=== PATIENT | male | born 1985 ===

== ENCOUNTER 2018-12-13 11:08 | Observation (INO) | payer OTHER ==
[2018-12-13] MEDS ORDERED: Oxycodone/Acetaminophen 5/325 mg Tab PO STA (11:44)
[2018-12-13] MEDS ORDERED: Oxycodone/Acetaminophen 5/325 mg Tab ONE (12:26)
[2018-12-13] MEDS ORDERED: ceFAZolin 1 GM in Sodium Chloride 0.9% 100 ML IVPB STA (13:06)
[2018-12-13] MEDS ORDERED: Morphine 4 MG/ML VIAL IVP ONE (13:06)
[2018-12-13] MEDS ORDERED: Sodium Chloride 0.9% 1,000 ML IV STA (13:06)
--- NOTE | 2018-12-13 13:09 | ED PDOC ---
HPI: General Adult Time Seen by Provider: 12/13/18 11:43 Chief Complaint (Nursing): Trauma Chief Complaint (Provider): HAND/WRIST INJURY History Per: Patient (33 Y/O MALE HERE WITH LEFT HAND/ARM INJURY THAT OCCURRED TODAY CRUSH INJURY WHEN 13 PLANKs FELL ON WRIST/HAND AND CRUSHED AGAINST CONCRETE. NOTES MODERATE PAIN IN WRIST AND HAND. IS LEFT HAND DOMINANT. ABLE TO MOVE DIGITS.) Past Medical History Reviewed: Historical Data, Nursing Documentation, Vital Signs Vital Signs: Last Vital Signs Temp 98.3 F 12/13/18 11:12 Pulse 84 12/13/18 11:12 Resp 19 12/13/18 11:12 BP 177/70 H 12/13/18 11:12 Pulse Ox 100 12/13/18 11:12 - Family History Family History: States: No Known Family Hx - Home Medications Home Medications: Ambulatory Orders Medication Instructions Recorded Cephalexin [Keflex] 500 mg PO BID 7 Days #14 capsule 12/14/18 RX: Ibuprofen [Motrin Tab] 600 mg PO Q6 #20 tab 12/14/18 - Allergies Allergies/Adverse Reactions: Allergies Allergy/AdvReac Type Severity Reaction Status Date / Time No Known Allergies Allergy Verified 12/13/18 11:14 Review of Systems ROS Statement: Except As Marked, All Systems Reviewed And Found Negative Physical Exam - Reviewed Nursing Documentation Reviewed: Yes Vital Signs Reviewed: Yes - Physical Exam Appears: Positive for: Well, Non-toxic, No Acute Distress Head Exam: Positive for: ATRAUMATIC, NORMAL INSPECTION, NORMOCEPHALIC Skin: Positive for: Normal Color, Warm, DRY Eye Exam: Positive for: EOMI, Normal appearance, PERRL ENT: Positive for: Normal ENT Inspection Neck: Positive for: Normal, Painless ROM Cardiovascular/Chest: Positive for: Regular Rate, Rhythm Respiratory: Positive for: CNT, Normal Breath Sounds Gastrointestinal/Abdominal: Positive for: Normal Exam, Soft Back: Positive for: Normal Inspection Extremity: Positive for: Normal ROM, Other (TENDERNESS NOTED LEFT WRIST AND HAND. (+) LACERATION #1 PROXIMAL VOLAR REGION OF THIRD DIGIT 2.5 CM SIX 4-0 PROLENE SUTURES. LACERATION #2 DISTAL VOLAR SURFACE OF THIRD DIGIT 5.0 CM TEN 4-0 PROLENE INTERRUPTED SUTURES PLACED. SUBUNGUAL HEMATOMA NOTED FOURTH DIGIT.) Neurologic/Psych: Positive for: Alert, Oriented - Laboratory Results Result Diagrams: 12/14/18 04:25 12/14/18 04:25 - ECG O2 Sat by Pulse Oximetry: 100 - Progress ED Course And Treament: PERCOCET 5/325 MG X 1 DOSE XRY OF HAND/WRIST/FOREARM WNL UPON RE-EXAMINATION, PERSISTENT PAIN ALSO NOTED MODERATE SWELLING LEFTWRIST WITH PATIENT DESCRIBING NUMBNESS IN HANDS/DIGITS. CAPILLARY REFILL NOTED PERSISTENT. MORPHINE 4 MG IV NS 1 LITER ANCEF 1 GM IV CALL PLACED TO DR. LYNN. XRY OF FORERM: WNL XRY WRIST: IMPRESSION: Suspected minimally displaced triquetral fracture. These findings were discussed by telephone with Oscar Landa at 1:18 p.m. on 12/13/2018. XRY HAND: IMPRESSION: Suspected minimally displaced triquetral fracture. D/W DR. PIZARRO concern for compartment syndrome. WILL COME TO ED FOR EVALUATION. SEEN BY DR. PIZARRO IN ED. WILL ADMIT FOR OBSERVATION. VOLAR SPLINT APPLIED IN ED . THIRD DIGIT SUBUNGUAL HEMATOMA TREPINATED IN ED. Disposition - Clinical Impression Clinical Impression: Crush injury forearm, Triquetral fracture, Crush injury of hand, Laceration of finger, Subungual hematoma of finger - Patient ED Disposition Is Patient to be Admitted: Yes - Disposition Disposition Time: 14:37 Condition: FAIR - Pt Status Changed To: Hospital Disposition Of: Observation Procedure: Wound Repair - Time Performed Time Performed: 15:39 - Time Out Time Out: Site verified - Consent Obtained Consent obtained: Verbal - Performed by Performed by: Mid-level Provider - Indications Indication(s):: Laceration - Location Location:: Left, Hand Finger:: Left, Middle Shape:: Linear, Curvilinear Dimensions Length cm: LAC#1 2.5 CM SIX 4-0 PROLENE INTERRUPTED PROX SUTURE Dimensions width cm: LAC #2 5.0 CM DISTAL THIRD DIGIT TEN 4-0 PROLENE SUTURES INTERRUPTED Depth:: Subcutaneous fascia - Anesthetic Technique Anesthetic Technique: Regional block Local/Regional Anesthetic:: Lidocaine 1% - Irrigated Irrigated with ml of normal saline: 150ML - Complexity Complexity:: Simple (one layer) - Muscle repiar layer closed with Muscle repair layer closed with:: Tetanus up to date - Patient tolerated procedure Patient Tolerated Procedure:: Well
--- NOTE | 2018-12-13 13:15 | RAD ---
Date of service: 12/13/2018 PROCEDURE: Radiographs of the Left Forearm HISTORY: INJUYR COMPARISON: None available. TECHNIQUE: Frontal and lateral views obtained. FINDINGS: BONES: No fracture or destructive lesion. JOINT SPACES: Unremarkable. OTHER FINDINGS: None. IMPRESSION: Unremarkable radiographs of the left forearm.
[2018-12-13] MEDS ORDERED: Morphine 4 MG/ML VIAL ONE (13:19)
--- NOTE | 2018-12-13 13:22 | RAD ---
Date of service: 12/13/2018 PROCEDURE: Left Wrist Radiographs. HISTORY: INJURY COMPARISON: None. FINDINGS: BONES: Suspect minimally displaced triquetral fracture. This is evident only in the lateral projection. No other fracture identified. JOINTS: Normal. No dislocation. SOFT TISSUES: There is dorsal soft tissue swelling noted. OTHER FINDINGS: None. IMPRESSION: Suspected minimally displaced triquetral fracture. These findings were discussed by telephone with Oscar Landa at 1:18 p.m. on 12/13/2018.
--- NOTE | 2018-12-13 13:31 | RAD ---
PROCEDURE: Left Hand Radiographs. HISTORY: HAND INJURY COMPARISON: None. FINDINGS: BONES: Suspected triquetrum fracture, minimally displaced. No other fracture identified. JOINTS: Normal. No osteoarthritic changes. SOFT TISSUES: Minimal dorsal soft tissue swelling OTHER FINDINGS: None. IMPRESSION: Suspected minimally displaced triquetral fracture.
[2018-12-13 14:00] LABS: BASO % 0.2 % (0.0-2.0); EOS # 0.1 K/uL (0.0-0.7); EOS % 0.8 % (0.0-4.0); LYMPH % 10.6 % (20.0-40.0); MEAN CELL VOLUME 84.8 fl (80.0-94.0); MEAN CORPUSCULAR HEMOGLOBIN 28.7 pg (27.0-31.0); MEAN CORPUSCULAR HGB CONC 33.9 g/dL (33.0-37.0); MEAN PLATELET VOLUME 10.2 fl (7.2-11.7); MONO # 0.3 K/uL (0.0-0.8); MONO % 3.6 % (0.0-10.0); NEUT % 84.8 % (50.0-75.0); NRBC % 0.2 % (0.0-0.0); RBC 4.86 Mil/uL (4.40-5.90); RED CELL DISTRIBUTION WIDTH 13.8 % (11.5-14.5); WHITE BLOOD COUNT 9.4 K/uL (4.8-10.8)
[2018-12-13 14:07] LABS: ALB/GLOB RATIO 1.3 (1.0-2.1); ALBUMIN 4.5 g/dL (3.5-5.0); ALT/SGPT 27 U/L (21-72); AST/SGOT 29 U/L (17-59); BLOOD UREA NITROGEN 12 mg/dl (9-20); CALCIUM 9.5 mg/dL (8.4-10.2); GFR NON-AFRICAN AMERICAN > 60
[2018-12-13] MEDS ORDERED: Lidocaine 1% Inj (20ml) INFIL ONE (14:10)
[2018-12-13] MEDS ORDERED: Lidocaine 1% Inj (20ml) ONE (14:16)
--- NOTE | 2018-12-13 16:20 | CP.PCM.HP ---
<Meera Frias - Last Filed: 12/13/18 17:20> History of Present Illness - History of Present Illness History of Present Illness: CC: "I hurt my left arm and hand" 33 year old male patient, with no significant PMHx, seen and evaluated for left arm injury. Patient states that while he was at work, he was carrying plates down the steps when wooden sheets next to him fell causing his hand to be crushed between the wooden sheets and the concrete wall. He states that his has pain to the wrist and third finger. He is currently experiencing numbness over his wrist, however states that he can move his fingers. He denies nausea/vomitting/fever/chest pain/SOB. PMD: Denies PMHx: Denies PSHx: Denies SHx: Denies Allergies: NKDA Medication: Denies Nish Interpretor: [id number] ED Course: - Percocet 5/325 (x1 dose), Ancef 1gm IV (x1 dose), Morphine (x1 dose) - X-ray of L hand/wrist/forearm taken; minimally displaced triquetral fracture - Laceration to left 3rd digit and hand sutured - Ortho Consult; Dr. Story - Volar splint applied to L arm Present on Admission - Present on Admission Any Indicators Present on Admission: No History of DVT/PE: No History of Uncontrolled Diabetes: No Decubitus Ulcer Present: No Review of Systems - Constitutional Constitutional: As Per HPI. absent: Chills, Fever - EENT Eyes: As Per HPI. absent: Change in Vision - Cardiovascular Cardiovascular: As Per HPI - Respiratory Respiratory: As Per HPI. absent: Cough, Wheezing - Gastrointestinal Gastrointestinal: As Per HPI. absent: Abdominal Pain - Genitourinary Genitourinary: As Per HPI - Musculoskeletal Musculoskeletal: Numbness Additional comments: Numbness appreciated to L wrist - Integumentary Integumentary: As Per HPI Additional comments: Laceration appreciated to L hand and finger - Neurological Neurological: As Per HPI - Psychiatric Psychiatric: As Per HPI - Endocrine Endocrine: As Per HPI - Hematologic/Lymphatic Hematologic: As Per HPI Past Patient History - Past Social History Smoking Status: Never Smoked Alcohol: Social - PSYCHIATRIC Hx Substance Use: No - ANESTHESIA Hx Anesthesia: No Meds Allergies/Adverse Reactions: Allergies Allergy/AdvReac Type Severity Reaction Status Date / Time No Known Allergies Allergy Verified 12/13/18 11:14 Physical Exam - Constitutional Appears: Non-toxic, No Acute Distress - Head Exam Head Exam: ATRAUMATIC, NORMOCEPHALIC - Eye Exam Eye Exam: Normal appearance Pupil Exam: NORMAL ACCOMODATION - Respiratory Exam Respiratory Exam: Clear to Auscultation Bilateral, NORMAL BREATHING PATTERN - Cardiovascular Exam Cardiovascular Exam: REGULAR RHYTHM - GI/Abdominal Exam GI & Abdominal Exam: Normal Bowel Sounds, Soft - Extremities Exam Additional comments: Left volar splint c/d/i Patient able to wiggle fingers Cap refill to digits < 3 seconds - Neurological Exam Neurological exam: Alert, Oriented x3 - Psychiatric Exam Psychiatric exam: Normal Affect, Normal Mood - Skin Skin Exam: Warm Results - Vital Signs Recent Vital Signs: Last Vital Signs Temp 98.3 F 12/13/18 11:12 Pulse 84 12/13/18 11:12 Resp 19 12/13/18 11:12 BP 177/70 H 12/13/18 11:12 Pulse Ox 100 12/13/18 15:47 - Labs Result Diagrams: 12/13/18 13:53 12/13/18 13:53 Labs: Laboratory Results - last 24 hr 12/13/18 12/13/18 12/13/18 13:53 13:53 13:53 WBC 9.4 RBC 4.86 Hgb 14.0 Hct 41.2 MCV 84.8 MCH 28.7 MCHC 33.9 RDW 13.8 Plt Count 149 MPV 10.2 Neut % (Auto) 84.8 H Lymph % (Auto) 10.6 L Sebastian % (Auto) 3.6 Eos % (Auto) 0.8 Baso % (Auto) 0.2 Neut # (Auto) 8.0 H Lymph # (Auto) 1.0 Sebastian # (Auto) 0.3 Eos # (Auto) 0.1 Baso # (Auto) 0.0 Sodium 137 Potassium 3.8 Chloride 100 Carbon Dioxide 26 Anion Gap 15 BUN 12 Creatinine 0.6 L Est GFR ( Amer) > 60 Est GFR (Non-Af Amer) > 60 Random Glucose 111 H Calcium 9.5 Total Bilirubin 0.5 AST 29 ALT 27 Alkaline Phosphatase 94 Total Protein 8.1 Albumin 4.5 Globulin 3.6 Albumin/Globulin Ratio 1.3 Blood Type O POSITIVE Antibody Screen Negative BBK History Checked No verified bt Assessment & Plan - Assessment and Plan (Free Text) Assessment: 33 year old male patient, with no significant PMHx, admitted for L forearm and hand crush injury Plan: 1. Crush injury to wrist and finger with subsequent triquetral fracture - Admit to med/surg for observation - Pain meds, Tylenol, Percocet, Morphine - Orthopedic Consult: Dr. Story - Neurovascular checks Q1 - NPO 2. DVT prophylaxis - SCDs - Date & Time Date: 12/13/18 Time: 16:26 <Porsha Ovalles - Last Filed: 12/13/18 18:44> Results - Vital Signs Recent Vital Signs: Last Vital Signs Temp 98.8 F 12/13/18 17:58 Pulse 66 12/13/18 17:58 Resp 18 12/13/18 17:58 BP 136/72 12/13/18 17:58 Pulse Ox 97 12/13/18 17:58 - Labs Result Diagrams: 12/13/18 13:53 12/13/18 13:53 Labs: Laboratory Results - last 24 hr 12/13/18 12/13/18 12/13/18 13:53 13:53 13:53 WBC 9.4 RBC 4.86 Hgb 14.0 Hct 41.2 MCV 84.8 MCH 28.7 MCHC 33.9 RDW 13.8 Plt Count 149 MPV 10.2 Neut % (Auto) 84.8 H Lymph % (Auto) 10.6 L Sebastian % (Auto) 3.6 Eos % (Auto) 0.8 Baso % (Auto) 0.2 Neut # (Auto) 8.0 H Lymph # (Auto) 1.0 Sebastian # (Auto) 0.3 Eos # (Auto) 0.1 Baso # (Auto) 0.0 Sodium 137 Potassium 3.8 Chloride 100 Carbon Dioxide 26 Anion Gap 15 BUN 12 Creatinine 0.6 L Est GFR ( Amer) > 60 Est GFR (Non-Af Amer) > 60 Random Glucose 111 H Calcium 9.5 Total Bilirubin 0.5 AST 29 ALT 27 Alkaline Phosphatase 94 Total Protein 8.1 Albumin 4.5 Globulin 3.6 Albumin/Globulin Ratio 1.3 Blood Type O POSITIVE Blood Type Confirm Antibody Screen Negative BBK History Checked No verified bt 12/13/18 15:20 WBC RBC Hgb Hct MCV MCH MCHC RDW Plt Count MPV Neut % (Auto) Lymph % (Auto) Sebastian % (Auto) Eos % (Auto) Baso % (Auto) Neut # (Auto) Lymph # (Auto) Sebastian # (Auto) Eos # (Auto) Baso # (Auto) Sodium Potassium Chloride Carbon Dioxide Anion Gap BUN Creatinine Est GFR ( Amer) Est GFR (Non-Af Amer) Random Glucose Calcium Total Bilirubin AST ALT Alkaline Phosphatase Total Protein Albumin Globulin Albumin/Globulin Ratio Blood Type Blood Type Confirm O POSITIVE Antibody Screen BBK History Checked Attending/Attestation - Attestation I have personally seen and examined this patient.: Yes I have fully participated in the care of the patient.: Yes I have reviewed all pertinent clinical information: Yes Notes (Text): 12/13/18 18:43 33 year old male no past medical history sustained a crush injury at work to hand between 13 planks and concrete. Patient was seen by Dr. Jez GALEAS who recommends OBS for possible compartment syndrome and q1 neurovascular checks in ICU. HD stable, NAD. Currently patient is NV intact, good pulses.
--- NOTE | 2018-12-13 17:54 | CP.PCM.CON ---
History of Present Illness - History of Present Illness History of Present Illness: Orthopedic consult: Patient is a RHD male c/o L hand/wrist pain. 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 He sustained a large laceration to his left 3rd digit as well. Currently his pain is dull, throbbing and located to his volar wrist and third finger. Pain is worse with movement and alleviated with rest. The pain is associated with severe swelling of the wrist volarly. He denies any numbness/tingling to L hand. He also denies CP/SOB/N/V/D/fever/dysuria/melena. Dr. Story was consulted to evaluate for forearm compartment syndrome. Review of Systems - Review of Systems All systems: reviewed and no additional remarkable complaints except Review of Systems: as per HPI Past Patient History - Past Medical History & Family History Past Family History: Reviewed and not pertinent - Past Social History Smoking Status: Never Smoked Alcohol: Social Drugs: Denies - CARDIAC Hx Cardiac Disorders: No - PSYCHIATRIC Hx Substance Use: No - ANESTHESIA Hx Anesthesia: No Meds Allergies/Adverse Reactions: Allergies Allergy/AdvReac Type Severity Reaction Status Date / Time No Known Allergies Allergy Verified 12/13/18 11:14 - Medications Medications: Current Medications Acetaminophen (Tylenol 325mg Tab) 325 mg PO Q4 PRN PRN Reason: Pain, Mild (1-3) Morphine Sulfate (Morphine) 2 mg IVP Q4 PRN PRN Reason: Pain, severe (8-10) Oxycodone/Acetaminophen (Percocet 5/325 Mg Tab) 1 tab PO Q4 PRN PRN Reason: Pain, moderate (4-7) Stop: 12/16/18 16:40 Physical Exam - Constitutional Appears: Well, No Acute Distress - Head Exam Head Exam: ATRAUMATIC, NORMOCEPHALIC - Eye Exam Eye Exam: EOMI, Normal appearance - ENT Exam ENT Exam: Mucous Membranes Moist - Respiratory Exam Respiratory Exam: NORMAL BREATHING PATTERN - Extremities Exam Additional comments: RUE: large laceration to 3rd digit from distal phalynx to PIP volarly severe swelling to 3rd digit and volar wrist compartments are softly compressible Radial pulse inact sensation intact MN/UN/RN motor intact MN/UN/Rn - Neurological Exam Neurological exam: Alert, Oriented x3 - Psychiatric Exam Psychiatric exam: Normal Affect, Normal Mood - Skin Skin Exam: Normal Color, Warm Results - Vital Signs Recent Vital Signs: Last Vital Signs Temp 98.5 F 12/13/18 17:42 Pulse 64 12/13/18 17:42 Resp 18 12/13/18 17:42 BP 148/69 12/13/18 17:42 Pulse Ox 98 12/13/18 17:42 - Labs Result Diagrams: 12/13/18 13:53 12/13/18 13:53 Labs: Laboratory Results - last 24 hr 12/13/18 12/13/18 12/13/18 13:53 13:53 13:53 WBC 9.4 RBC 4.86 Hgb 14.0 Hct 41.2 MCV 84.8 MCH 28.7 MCHC 33.9 RDW 13.8 Plt Count 149 MPV 10.2 Neut % (Auto) 84.8 H Lymph % (Auto) 10.6 L Floyd % (Auto) 3.6 Eos % (Auto) 0.8 Baso % (Auto) 0.2 Neut # (Auto) 8.0 H Lymph # (Auto) 1.0 Floyd # (Auto) 0.3 Eos # (Auto) 0.1 Baso # (Auto) 0.0 Sodium 137 Potassium 3.8 Chloride 100 Carbon Dioxide 26 Anion Gap 15 BUN 12 Creatinine 0.6 L Est GFR ( Amer) > 60 Est GFR (Non-Af Amer) > 60 Random Glucose 111 H Calcium 9.5 Total Bilirubin 0.5 AST 29 ALT 27 Alkaline Phosphatase 94 Total Protein 8.1 Albumin 4.5 Globulin 3.6 Albumin/Globulin Ratio 1.3 Blood Type O POSITIVE Blood Type Confirm Antibody Screen Negative BBK History Checked No verified bt 12/13/18 15:20 WBC RBC Hgb Hct MCV MCH MCHC RDW Plt Count MPV Neut % (Auto) Lymph % (Auto) Floyd % (Auto) Eos % (Auto) Baso % (Auto) Neut # (Auto) Lymph # (Auto) Floyd # (Auto) Eos # (Auto) Baso # (Auto) Sodium Potassium Chloride Carbon Dioxide Anion Gap BUN Creatinine Est GFR ( Amer) Est GFR (Non-Af Amer) Random Glucose Calcium Total Bilirubin AST ALT Alkaline Phosphatase Total Protein Albumin Globulin Albumin/Globulin Ratio Blood Type Blood Type Confirm O POSITIVE Antibody Screen BBK History Checked - Impressions Impression: Accession No. : [id number] Patient Name / ID : RONNIE MAURO / [id number] Exam Date : 12/13/2018 11:29:38 ( Approved ) Study Comment : Sex / Age : M / 33Y Creator : Bib Zacarias MD Dictator : Bib Zacarias MD Gang Pusher : [employer] Teacher : Bib Zacarias MD Approver2 : Report Date : 12/13/2018 13:28:03 My Comment : PROCEDURE: Left Hand Radiographs. HISTORY: HAND INJURY COMPARISON: None. FINDINGS: BONES: Suspected triquetrum fracture, minimally displaced. No other fracture ident ified. JOINTS: Normal. No osteoarthritic changes. SOFT TISSUES: Minimal dorsal soft tissue swelling OTHER FINDINGS: None. IMPRESSION: Suspected minimally displaced triquetral fracture. Accession No. : [id number] Patient Name / ID : RONNIE MAURO / [id number] Exam Date : 12/13/2018 11:35:37 ( Approved ) Study Comment : Sex / Age : M / 33Y Creator : Bib Zacarias MD Dictator : Bib Zacarias MD Gang Pusher : [employer] Teacher : Bib Zacarias MD Approver2 : Report Date : 12/13/2018 13:18:27 My Comment : Date of service: 12/13/2018 PROCEDURE: Left Wrist Radiographs. HISTORY: INJURY COMPARISON: None. FINDINGS: BONES: Suspect minimally displaced triquetral fracture. This is evident only in the lateral projection. No other fracture identified. JOINTS: Normal. No dislocation. SOFT TISSUES: There is dorsal soft tissue swelling noted. OTHER FINDINGS: None. IMPRESSION: Suspected minimally displaced triquetral fracture. These findings were discussed by telephone with Oscar Landa at 1:18 p.m. on 12/13/2018. Accession No. : [id number] Patient Name / ID : RONNIE MAURO / [id number] Exam Date : 12/13/2018 11:37:34 ( Approved ) Study Comment : Sex / Age : M / 33Y Creator : Bib Zacarias MD Dictator : Bib Zacarias MD Gang Pusher : [employer] Teacher : Bib Zacarias MD Approver2 : Report Date : 12/13/2018 13:11:54 My Comment : Date of service: 12/13/2018 PROCEDURE: Radiographs of the Left Forearm HISTORY: INJUYR COMPARISON: None available. TECHNIQUE: Frontal and lateral views obtained. FINDINGS: BONES: No fracture or destructive lesion. JOINT SPACES: Unremarkable. OTHER FINDINGS: None. IMPRESSION: Unremarkable radiographs of the left forearm. Assessment & Plan (1) Crush injury forearm Assessment and Plan: -Neurovascular checks every hour -Avoid circumferential wraps to wrist -Strict elevation and ice to wrist/hand Status: Acute (2) Laceration of finger Assessment and Plan: -Repaired by ED -local wound care Status: Acute (3) Triquetral fracture Assessment and Plan: immobilization once cleared of compartment syndrome next 24 hrs Status: Acute - Date & Time Date: 12/13/18 Time: 14:00
[2018-12-13] MEDS: Morphine 4 MG/ML VIAL IVP PRN (19:04)
[2018-12-13] MEDS ORDERED: Influenza Vaccine 60 mcg/0.5 mL SYR (4YR UP) IM ONE (21:00)
[2018-12-13] MEDS: Potassium Ch 20mEq in D5-1/2NS 1,000 ML IV SCH (21:29)
[2018-12-14] MEDS: Morphine 4 MG/ML VIAL IVP PRN (02:29)
[2018-12-14 05:33] LABS: MEAN CELL VOLUME 85.7 fl (80.0-94.0); MEAN CORPUSCULAR HEMOGLOBIN 28.7 pg (27.0-31.0); MEAN CORPUSCULAR HGB CONC 33.5 g/dL (33.0-37.0); RBC 4.52 Mil/uL (4.40-5.90); RED CELL DISTRIBUTION WIDTH 13.6 % (11.5-14.5); WHITE BLOOD COUNT 6.6 K/uL (4.8-10.8)
[2018-12-14 05:55] LABS: BLOOD UREA NITROGEN 9 mg/dl (9-20); GFR NON-AFRICAN AMERICAN > 60
[2018-12-14] MEDS: Potassium Ch 20mEq in D5-1/2NS 1,000 ML IV SCH (06:10)
[2018-12-14] MEDS: Pneumococcal 23-Valent Vaccine IM ONE ×2 (06:12→06:40)
[2018-12-14 08:16] VITALS: TEMP 98
[2018-12-14] MEDS: Oxycodone/Acetaminophen 5/325 mg Tab PO PRN ×2 (08:22→14:35)
[2018-12-14 10:53] VITALS: PULSE 69
--- NOTE | 2018-12-14 11:26 | CP.PCM.PN ---
Subjective - Date & Time of Evaluation Date of Evaluation: 12/14/18 Time of Evaluation: 09:00 - Subjective Subjective: Patient seen and examined at bedside. Pain is improved since yesterday. No complaints of L hand worsening pain/numbness/tingling/cold hand. No acute events overnight. Objective - Vital Signs/Intake and Output Vital Signs (last 24 hours): Temp Pulse Resp BP Pulse Ox 98.0 F 69 15 108/60 96 12/14/18 08:00 12/14/18 10:00 12/14/18 10:00 12/14/18 10:00 12/14/18 10:00 Intake and Output: 12/14/18 12/14/18 06:59 18:59 Intake Total 1220 0 Balance 1220 0 - Medications Medications: Current Medications Acetaminophen (Tylenol 325mg Tab) 325 mg PO Q4 PRN PRN Reason: Pain, Mild (1-3) Cephalexin Monohydrate (Keflex) 500 mg PO Q12 MATHEUS; Protocol Last Admin: 12/14/18 09:21 Dose: 500 mg Potassium Chloride/Dextrose/Sod Cl (Potassium Chl 20 Meq In D5-1/2ns) 1,000 mls @ 125 mls/hr IV .Q8H MATHEUS Stop: 12/14/18 18:54 Last Admin: 12/14/18 06:10 Dose: 125 mls/hr Morphine Sulfate (Morphine) 2 mg IVP Q4 PRN PRN Reason: Pain, severe (8-10) Last Admin: 12/14/18 02:29 Dose: 2 mg Oxycodone/Acetaminophen (Percocet 5/325 Mg Tab) 1 tab PO Q4 PRN PRN Reason: Pain, moderate (4-7) Stop: 12/16/18 16:40 Last Admin: 12/14/18 08:22 Dose: 1 tab - Labs Labs: 12/14/18 04:25 12/14/18 04:25 - Extremities Exam Additional comments: LUE: volar splint in place, loosely wrapped dressings to L 3rd digit intact with bloody drainage, not actively bleeding sensation intact to all fingers, MN/UN/RN 2 sec cap refill all fingers Assessment and Plan (1) Crush injury forearm Assessment & Plan: -Compartment syndrome less likely due to improving symptoms -maintain volar splint looslely wrapped -Strict ice and elevation fo LUE -local wound care to 3rd digit -CT scan to further evaluate for triquetral fx -above d/w Dr. Story in agreement Status: Acute (2) Laceration of finger Status: Acute (3) Triquetral fracture Status: Acute
--- NOTE | 2018-12-14 11:26 | CP.CCUPN ---
CCU Subjective - Physician Review Subjective (Free Text): 12/14/18 11:26 The patient was Seen/interviewed and examined by me at the bedside, Medical records reviewed and Management issues were discussed and formulated with the house staff. Events reviewed Mr Cavazos is a 33 Years old Male with no past medical history sustained a crush injury at work to hand between 13 planks and concrete. Volar splint applied in ED Patient was seen by Ortho Dr. Story, and he was admitted to ICU for observations for possible compartment syndrome and q1 neurovascular checks. Local wound care, ice and elevation fo LUE Doing well today, Comfortable, NAD Afebrile Alert and oriented Pain controlled Denies any chest pain, SOB or Palpitations Scheduled for CT scan to further evaluate for triquetral fx CCU Objective - Vital Signs / Intake & Output Vital Signs (Last 4 hours): Vital Signs Temp Pulse Resp BP Pulse Ox 12/14/18 10:00 69 15 108/60 96 12/14/18 08:00 98.0 F 66 14 110/60 95 Intake and Output (Last 8hrs): Intake & Output 12/13/18 12/14/18 12/14/18 22:59 06:59 14:59 Intake Total 220 1000 0 Balance 220 1000 0 Weight 176 lb Intake: IV 220 1000 0 Other: # Voids Urine, Voided 1 1 2 - Physical Exam Head: Positive for: Atraumatic, Normocephalic. Negative for: Tenderness, Contusion Pupils: Positive for: PERRL. Negative for: Sluggish, Non-Reactive Extroacular Muscles: Positive for: EOMI Conjunctiva: Positive for: Normal. Negative for: Injected, Icteric Ears: Positive for: Normal Mouth: Positive for: Moist Mucous Membranes Pharnyx: Positive for: Normal. Negative for: ERYTHEMA Nose (Internal): Positive for: Normal Inspection Neck: Positive for: Normal Range of Motion, Trachea Midline. Negative for: Meningeal Signs, MIDLINE TENDERNESS, Paraspinal Tenderness, JVD, Lymphadenopathy, Bruit, Other Respiratory/Chest: Positive for: Clear to Auscultation, Good Air Exchange. Negative for: Respiratory Distress, Accessory Muscle Use, Rales, Retracting, Rhonchi Cardiovascular: Positive for: Regular Rate and Rhythm, Normal S1, S2, Peripheal Pulses Present. Negative for: Murmurs Abdomen: Positive for: Normal Bowel Sounds. Negative for: Tenderness, Distention Upper Extremity: Negative for: Normal Inspection (Left Hand Lacerations, Shape:: Linear, Curvilinear, Dimensions Length cm: LAC#1 2.5 CM SIX 4-0, LAC #2 5.0 CM DISTAL THIRD DIGIT TEN 4-0 ) Lower Extremity: Positive for: Normal Inspection. Negative for: Edema, CALF TENDERNESS, NORMAL PULSES Neurological: Positive for: GCS=15, CN II-XII Intact, Speech Normal, Motor Func Grossly Intact, Normal Sensory Function Skin: Positive for: Warm, Dry Psychiatric: Positive for: Alert, Oriented x 3, Normal Insight, Normal Concentration - Medications Active Medications: Active Medications Generic Name Dose Route Start Last Admin Trade Name Freq PRN Reason Stop Dose Admin Acetaminophen 325 mg 12/13/18 16:39 Tylenol 325mg Tab PO Q4 PRN Pain, Mild (1-3) Cephalexin Monohydrate 500 mg 12/14/18 09:00 12/14/18 09:21 Keflex PO 500 mg Q12 MATHEUS Administration Protocol Potassium Chloride/Dextrose/Sod Cl 1,000 mls @ 125 mls/hr 12/13/18 19:00 12/14/18 06:10 Potassium Chl 20 Meq In D5-1/2ns IV 12/14/18 18:54 125 mls/hr .Q8H MATHEUS Administration Morphine Sulfate 2 mg 12/13/18 16:39 12/14/18 02:29 Morphine IVP 2 mg Q4 PRN Administration Pain, severe (8-10) Oxycodone/Acetaminophen 1 tab 12/13/18 16:39 12/14/18 08:22 Percocet 5/325 Mg Tab PO 12/16/18 16:40 1 tab Q4 PRN Administration Pain, moderate (4-7) - Patient Studies Lab Studies: Lab Studies 12/14/18 12/14/18 12/13/18 Range/Units 04:25 04:25 15:20 WBC 6.6 (4.8-10.8) K/uL RBC 4.52 (4.40-5.90) Mil/uL Hgb 13.0 (12.0-18.0) g/dL Hct 38.7 (35.0-51.0) % MCV 85.7 (80.0-94.0) fl MCH 28.7 (27.0-31.0) pg MCHC 33.5 (33.0-37.0) g/dL RDW 13.6 (11.5-14.5) % Plt Count 133 (130-400) K/uL MPV (7.2-11.7) fl Neut % (Auto) (50.0-75.0) % Lymph % (Auto) (20.0-40.0) % Mcdowell % (Auto) (0.0-10.0) % Eos % (Auto) (0.0-4.0) % Baso % (Auto) (0.0-2.0) % Neut # (Auto) (1.8-7.0) K/uL Lymph # (Auto) (1.0-4.3) K/uL [place]cdowell # (Auto) (0.0-0.8) K/uL Eos # (Auto) (0.0-0.7) K/uL Baso # (Auto) (0.0-0.2) K/uL Sodium 140 (132-148) mmol/l Potassium 3.8 (3.6-5.0) MMOL/L Chloride 101 (98-107) mmol/L Carbon Dioxide 29 (22-30) mmol/L Anion Gap 14 (10-20) BUN 9 (9-20) mg/dl Creatinine 0.8 (0.8-1.5) mg/dl Est GFR ( Amer) > 60 Est GFR (Non-Af Amer) > 60 Random Glucose 105 (75-110) mg/dL Calcium 9.0 (8.4-10.2) mg/dL Total Bilirubin (0.2-1.3) mg/dl AST (17-59) U/L ALT (21-72) U/L Alkaline Phosphatase (38-126) U/L Total Protein (6.3-8.2) G/DL Albumin (3.5-5.0) g/dL Globulin (2.2-3.9) gm/dL Albumin/Globulin Ratio (1.0-2.1) Blood Type Blood Type Confirm O POSITIVE Antibody Screen BBK History Checked 12/13/18 12/13/18 12/13/18 Range/Units 13:53 13:53 13:53 WBC 9.4 (4.8-10.8) K/uL RBC 4.86 (4.40-5.90) Mil/uL Hgb 14.0 (12.0-18.0) g/dL Hct 41.2 (35.0-51.0) % MCV 84.8 (80.0-94.0) fl MCH 28.7 (27.0-31.0) pg MCHC 33.9 (33.0-37.0) g/dL RDW 13.8 (11.5-14.5) % Plt Count 149 (130-400) K/uL MPV 10.2 (7.2-11.7) fl Neut % (Auto) 84.8 H (50.0-75.0) % Lymph % (Auto) 10.6 L (20.0-40.0) % Mcdowell % (Auto) 3.6 (0.0-10.0) % Eos % (Auto) 0.8 (0.0-4.0) % Baso % (Auto) 0.2 (0.0-2.0) % Neut # (Auto) 8.0 H (1.8-7.0) K/uL Lymph # (Auto) 1.0 (1.0-4.3) K/uL Mcdowell # (Auto) 0.3 (0.0-0.8) K/uL Eos # (Auto) 0.1 (0.0-0.7) K/uL Baso # (Auto) 0.0 (0.0-0.2) K/uL Sodium 137 (132-148) mmol/l Potassium 3.8 (3.6-5.0) MMOL/L Chloride 100 (98-107) mmol/L Carbon Dioxide 26 (22-30) mmol/L Anion Gap 15 (10-20) BUN 12 (9-20) mg/dl Creatinine 0.6 L (0.8-1.5) mg/dl Est GFR ( Amer) > 60 Est GFR (Non-Af Amer) > 60 Random Glucose 111 H (75-110) mg/dL Calcium 9.5 (8.4-10.2) mg/dL Total Bilirubin 0.5 (0.2-1.3) mg/dl AST 29 (17-59) U/L ALT 27 (21-72) U/L Alkaline Phosphatase 94 (38-126) U/L Total Protein 8.1 (6.3-8.2) G/DL Albumin 4.5 (3.5-5.0) g/dL Globulin 3.6 (2.2-3.9) gm/dL Albumin/Globulin Ratio 1.3 (1.0-2.1) Blood Type O POSITIVE Blood Type Confirm Antibody Screen Negative BBK History Checked No verified bt Laboratory Results - last 24 hr 12/13/18 12/13/18 12/13/18 13:53 13:53 13:53 WBC 9.4 RBC 4.86 Hgb 14.0 Hct 41.2 MCV 84.8 MCH 28.7 MCHC 33.9 RDW 13.8 Plt Count 149 MPV 10.2 Neut % (Auto) 84.8 H Lymph % (Auto) 10.6 L Mcdowell % (Auto) 3.6 Eos % (Auto) 0.8 Baso % (Auto) 0.2 Neut # (Auto) 8.0 H Lymph # (Auto) 1.0 Mcdowell # (Auto) 0.3 Eos # (Auto) 0.1 Baso # (Auto) 0.0 Sodium 137 Potassium 3.8 Chloride 100 Carbon Dioxide 26 Anion Gap 15 BUN 12 Creatinine 0.6 L Est GFR ( Amer) > 60 Est GFR (Non-Af Amer) > 60 Random Glucose 111 H Calcium 9.5 Total Bilirubin 0.5 AST 29 ALT 27 Alkaline Phosphatase 94 Total Protein 8.1 Albumin 4.5 Globulin 3.6 Albumin/Globulin Ratio 1.3 Blood Type O POSITIVE Blood Type Confirm Antibody Screen Negative BBK History Checked No verified bt 12/13/18 12/14/18 12/14/18 15:20 04:25 04:25 WBC 6.6 RBC 4.52 Hgb 13.0 Hct 38.7 MCV 85.7 MCH 28.7 MCHC 33.5 RDW 13.6 Plt Count 133 MPV Neut % (Auto) Lymph % (Auto) Mcdowell % (Auto) Eos % (Auto) Baso % (Auto) Neut # (Auto) Lymph # (Auto) Mcdowell # (Auto) Eos # (Auto) Baso # (Auto) Sodium 140 Potassium 3.8 Chloride 101 Carbon Dioxide 29 Anion Gap 14 BUN 9 Creatinine 0.8 Est GFR ( Amer) > 60 Est GFR (Non-Af Amer) > 60 Random Glucose 105 Calcium 9.0 Total Bilirubin AST ALT Alkaline Phosphatase Total Protein Albumin Globulin Albumin/Globulin Ratio Blood Type Blood Type Confirm O POSITIVE Antibody Screen BBK History Checked Radiology Impressions: Radiology Impressions Hand X-Ray 12/13/18 11:39 IMPRESSION: Suspected minimally displaced triquetral fracture. Forearm X-Ray 12/13/18 11:43 IMPRESSION: Unremarkable radiographs of the left forearm. Wrist X-Ray 12/13/18 11:43 IMPRESSION: Suspected minimally displaced triquetral fracture. These findings were discussed by telephone with Oscar Landa at 1:18 p.m. on 12/13/2018. Review of Systems - Constitutional Constitutional: absent: Fever, Chills, Sweats, Weakness, Malaise - Cardiovascular Cardiovascular: absent: As Per HPI, Acrocyanosis, Chest Pain, Chest Pain at Rest, Chest Pain with Activity, Claudication, Diaphoresis, Dyspnea, Dyspnea on Exertion, Edema, Irregular Heart Rhythm, Pain Radiating to Arm/Neck/Jaw, Leg Edema, Leg Ulcers, Lightheadedness, Orthopnea, Palpitations, Paroxysmal Nocturnal Dyspnea, Pedal Edema, Radiating Pain, Rapid Heart Rate, Slow Heart Rate, Syncope, Other, UNREMARKABLE - Respiratory Respiratory: absent: As Per HPI, Cough, Dyspnea, Hemoptysis, Dyspnea on Exertion, Wheezing, Snoring, Stridor, Pain on Inspiration, Chest Congestion, Excessive Mucous Production, Change in Mucous Color, Pain with Coughing, Other, UNREMARKABLE Critical Care Progress Note - Extremities/Vascular Does the Patient have a Central Venous Catheter?: No Does the Patient need a Central Venous Catheter?: No Does the Patient have a Benitez Catheter?: No Does the Patient need a Benitez Catheter?: No - Nutrition Nutrition: Nutrition Category Date Time Status Regular Diet [DIET] Diets 12/14/18 Lunch Active Assessment/Plan - Assessment and Plan (Free Text) Assessment: Assessment and Plan: Patient admitted with Crush injury forearm resulting in Triquetral fracture and Laceration of finger - Volar splint placed in ED and he was admitted to ICU for observations for possible compartment syndrome and q1 neurovascular checks. - Clinically improving, Pain/symptoms controlled - Evaluated by Ortho - Compartment syndrome less likely due to - Scheduled for CT scan to further evaluate for triquetral fx - Local wound care, ice and elevation heidy FLORES
[2018-12-14 12:15] VITALS: BP 106/52; RESP 11
--- NOTE | 2018-12-14 12:31 | CP.PCM.DIS ---
Provider - Provider Date of Admission: 12/13/18 14:37 Attending physician: Porsha Ovalles DO Consults: 12/13/18 17:49 Orthopedic Consult Routine Comment: Consulting Provider: Byron Story Consulting Physician: Byron Story Reason for Consult: ortho mgmt Time Spent in preparation of Discharge (in minutes): 30 Hospital Course - Lab Results Lab Results: Most Recent Lab Values WBC 6.6 K/uL (4.8-10.8) 12/14/18 04:25 RBC 4.52 Mil/uL (4.40-5.90) 12/14/18 04:25 Hgb 13.0 g/dL (12.0-18.0) 12/14/18 04:25 Hct 38.7 % (35.0-51.0) 12/14/18 04:25 MCV 85.7 fl (80.0-94.0) 12/14/18 04:25 MCH 28.7 pg (27.0-31.0) 12/14/18 04:25 MCHC 33.5 g/dL (33.0-37.0) 12/14/18 04:25 RDW 13.6 % (11.5-14.5) 12/14/18 04:25 Plt Count 133 K/uL (130-400) 12/14/18 04:25 MPV 10.2 fl (7.2-11.7) 12/13/18 13:53 Neut % (Auto) 84.8 % (50.0-75.0) H 12/13/18 13:53 Lymph % (Auto) 10.6 % (20.0-40.0) L 12/13/18 13:53 [place] % (Auto) 3.6 % (0.0-10.0) 12/13/18 13:53 Eos % (Auto) 0.8 % (0.0-4.0) 12/13/18 13:53 Baso % (Auto) 0.2 % (0.0-2.0) 12/13/18 13:53 Neut # (Auto) 8.0 K/uL (1.8-7.0) H 12/13/18 13:53 Lymph # (Auto) 1.0 K/uL (1.0-4.3) 12/13/18 13:53 [place] # (Auto) 0.3 K/uL (0.0-0.8) 12/13/18 13:53 Eos # (Auto) 0.1 K/uL (0.0-0.7) 12/13/18 13:53 Baso # (Auto) 0.0 K/uL (0.0-0.2) 12/13/18 13:53 Sodium 140 mmol/l (132-148) 12/14/18 04:25 Potassium 3.8 MMOL/L (3.6-5.0) 12/14/18 04:25 Chloride 101 mmol/L (98-107) 12/14/18 04:25 Carbon Dioxide 29 mmol/L (22-30) 12/14/18 04:25 Anion Gap 14 (10-20) 12/14/18 04:25 BUN 9 mg/dl (9-20) 12/14/18 04:25 Creatinine 0.8 mg/dl (0.8-1.5) 12/14/18 04:25 Est GFR ( Amer) > 60 12/14/18 04:25 Est GFR (Non-Af Amer) > 60 12/14/18 04:25 Random Glucose 105 mg/dL (75-110) 12/14/18 04:25 Calcium 9.0 mg/dL (8.4-10.2) 12/14/18 04:25 Total Bilirubin 0.5 mg/dl (0.2-1.3) 12/13/18 13:53 AST 29 U/L (17-59) 12/13/18 13:53 ALT 27 U/L (21-72) 12/13/18 13:53 Alkaline Phosphatase 94 U/L (38-126) 12/13/18 13:53 Total Protein 8.1 G/DL (6.3-8.2) 12/13/18 13:53 Albumin 4.5 g/dL (3.5-5.0) 12/13/18 13:53 Globulin 3.6 gm/dL (2.2-3.9) 12/13/18 13:53 Albumin/Globulin Ratio 1.3 (1.0-2.1) 12/13/18 13:53 Blood Type O POSITIVE 12/13/18 13:53 Blood Type Confirm O POSITIVE 02/06/19 15:20 Antibody Screen Negative 12/13/18 13:53 BBK History Checked No verified bt 12/13/18 13:53 - Hospital Course Hospital Course: 33 year old male patient, with no significant PMHx, admitted for suspected triquetral fracture status post L arm/hand crush injury yesterday. During his hospital course, ortho was consulted, Dr. Story, lacerations to the left 3rd digit and hand were sutured, pain was controlled, and L arm was immobilized. Q1 neurovascular checks were performed on the floors overnight to rule out compartment syndrome. On day of discharge, pain was well controlled, neurovascular status was WNL, and patient stable for discharge home. Patient given prescriptions for Ibuprofen and Keflex and told to follow up with Dr. Story within the week. - Date & Time of H&P Date of H&P: 12/14/18 Time of H&P: 15:35 Discharge Exam - Head Exam Head Exam: ATRAUMATIC, NORMOCEPHALIC - Eye Exam Eye Exam: Normal appearance Pupil Exam: NORMAL ACCOMODATION - Respiratory Exam Respiratory Exam: Clear to PA & Lateral, NORMAL BREATHING PATTERN - Cardiovascular Exam Cardiovascular Exam: REGULAR RHYTHM - GI/Abdominal Exam GI & Abdominal Exam: Normal Bowel Sounds, Unremarkable - Neurological Exam Neurological exam: Alert, Oriented x3 - Psychiatric Exam Psychiatric exam: Normal Affect, Normal Mood - Skin Skin Exam: Warm Discharge Plan - Discharge Medications Prescriptions: Cephalexin [Keflex] 500 mg PO BID 7 Days #14 capsule Ibuprofen [Motrin Tab] 600 mg PO Q6 #20 tab - Follow Up Plan Condition: FAIR Disposition: HOME/ ROUTINE
--- NOTE | 2018-12-14 15:07 | CT ---
Date of service: 12/14/2018 PROCEDURE: CT left wrist HISTORY: r/o triquetral fracture COMPARISON: Not available TECHNIQUE: 2.5 mm contiguous axial sections were acquired through the left wrist, without intravenous contrast administration. Sagittal and coronal images were reformatted from the axial scan. Total exam DLP: 211.92 mGy-cm. This CT exam was performed using 1 or more of the following dose reduction techniques: Automated exposure control, adjustment of the mA and/or kV according to patient size, and/or use of iterative reconstruction technique. FINDINGS: There is no acute fracture identified. There is a smooth corticated ossific density/fragment dorsal to the triquetrum possibly an old ununited triquetrum fracture fragment. This is unlikely to represent an acute triquetrum fracture. The joint spaces and articular surfaces are preserved. Normal carpal alignment is maintained. There is extensive soft tissue swelling seen over the dorsum of the hand. This is of uncertain significance. The possibility of focal soft tissue injury or cellulitis should be considered and correlated with clinical examination. IMPRESSION: Probable old ununited fracture fragment from triquetral fracture. No evidence of acute fracture. Soft tissue swelling over the dorsal aspect of the hand common nonspecific.
[2018-12-15 23:31] VITALS: O2SAT 100
== END 2018-12-14 16:49 | disposition home or self-care (01) ==
LOC: H.ER 11:08 → H.ERHOLD 14:37 → H.MEDSURG1 17:45 → H.ICU/CCU 20:41
PROVIDERS: ADMIT Student in an Organized Health Care Education/Training Program; ATTEND Student in an Organized Health Care Education/Training Program
DX: S67.22XA Crushing injury of left hand, initial encounter (principal); W23.0XXA Caught, crushed, jammed, or pinched between moving objects, initial encounter; S62.112A Displaced fracture of triquetrum [cuneiform] bone, left wrist, initial encounter for closed fracture; S61.219A Laceration without foreign body of unspecified finger without damage to nail, initial encounter; S60.10XA Contusion of unspecified finger with damage to nail, initial encounter; S41.112A Laceration without foreign body of left upper arm, initial encounter
CPT/HCPCS: 73090; 73110; 73130; 73200; 80048; 80053; 85025; 85027; 86850; 86900; 87081; 90471; 90674; 90732; 96374; 99285; G0378; J0690; J2270; J7030